=== PATIENT | female | born 1995 | race Caucasian/White ===

== ENCOUNTER → 2016-08-02 | Outpatient (REF) | payer BC | LOC: M SFHCWAGY 15:15 | PROVIDERS: ATTEND Nurse Practitioner Women's Health | DX: Z12.4 Encounter for screening for malignant neoplasm of cervix (principal); Z11.3 Encounter for screening for infections with a predominantly sexual mode of transmission | CPT/HCPCS: 87491; 87591; G0123 ==

== ENCOUNTER → 2016-08-31 | Outpatient (REF) | payer BC ==
[2016-08-31 19:15] LABS: ALBUMIN 4.9 GM/DL (3.2-5.2); ALBUMIN/GLOBULIN RATIO 1.53 (1.00-1.93); ALKALINE PHOSPHATASE 52 U/L (45-117); ALT/SGPT 30 U/L (12-78); ANION GAP 7 MEQ/L (8-16); AST/SGOT 22 U/L (15-37); BILIRUBIN,TOTAL 0.5 MG/DL (0.2-1.0); BLOOD UREA NITROGEN 20 MG/DL (7-18); CALCIUM LEVEL 9.5 MG/DL (8.5-10.1); CARBON DIOXIDE LEVEL 26 MEQ/L (21-32); CHLORIDE LEVEL 103 MEQ/L (98-107); CREATININE FOR GFR 0.81 MG/DL (0.55-1.02); FERRITIN 2 NG/ML (8-252); GLOMERULAR FILTRATION RATE > 60.0 (>60); GLUCOSE, FASTING 81 MG/DL (70-105); PERCENT SATURATION 2.5 % (13.2-37.4); POTASSIUM SERUM 4.3 MEQ/L (3.5-5.1); SODIUM LEVEL 136 MEQ/L (136-145); TOTAL IRON BINDING CAPACITY 563 UG/DL (250-450); TOTAL PROTEIN 8.1 GM/DL (6.4-8.2)
[2016-08-31 19:20] LABS: FOLATE > 24.0 NG/ML; VITAMIN B12 LEVEL 606 PG/ML
[2016-08-31 19:33] LABS: BASO # 0.1 K/mm3 (0.0-0.2); BASO % 1.2 % (0.0-1.0); EOS # 0.1 K/mm3 (0.0-0.50); EOS % 1.1 % (0.0-3.0); LARGE UNSTAINED CELL # 0.2 K/mm3 (0.0-0.4); LARGE UNSTAINED CELL % 2.7 % (0.0-4.0); LYMPH # 2.3 K/mm3 (1.5-6.5); LYMPH % 32.9 % (24.0-44.0); MEAN CORPUSCULAR HEMOGLOBIN 20.2 pg (27.0-33.0); MEAN CORPUSCULAR HGB CONC 28.3 g/dl (32.0-36.5); MEAN CORPUSCULAR VOLUME 71.4 fl (80.0-96.0); MONO # 0.3 K/mm3 (0.0-0.8); PLATELET COUNT, AUTOMATED 453 k/mm3 (150-450); RED CELL DISTRIBUTION WIDTH 15.7 % (11.5-14.5); WHITE BLOOD COUNT 6.8 K/mm3 (4.0-10.0)
[2016-08-31 19:35] LABS: ADD MORPHOLOGY? YES
[2016-08-31 20:43] LABS: HYPOCHROMASIA 2+; MICROCYTOSIS 2+; OVALOCYTES 2+; POIKILOCYTOSIS 2+; POLYCHROMASIA 1+; SCHISTOCYTES 1+
[2016-08-31 20:44] LABS: ACANTHOCYTES 1+; TARGET CELLS 1+
== END ==
LOC: M SFHCADAM 17:43
PROVIDERS: ATTEND Physician Assistant
DX: I73.00 Raynaud's syndrome without gangrene (principal); D50.9 Iron deficiency anemia, unspecified; R63.4 Abnormal weight loss

== ENCOUNTER → 2016-09-08 | Outpatient (CLI) | payer BC ==
--- NOTE | 2016-09-09 03:36 | REP ---
Clinical: Pelvic pain related to IUD placement. Technique: Transabdominal pelvic ultrasound followed by transvaginal examination for better evaluation of the endometrium and adnexa. Findings: Bladder is normal and measures 9.4 x 8.1 x 5.8 cm. Normal anteverted uterus measures 6.0 x 2.6 x 3.7 cm. The endometrial complex measures 2.5 mm thickness. No discrete uterine or endometrial abnormalities are appreciated. The bilateral ovaries are normal in appearance. Right ovary measures 3.3 x 2.8 x 1.9 cm. Left ovary measures 3.5 x 2.4 x 2.0 cm with 1.7 cm cyst. No pelvic fluid or adnexal mass lesion. Impression: Normal pelvic ultrasound. Signed by Bandar Diaz MD 09/09/2016 03:28 A
== END ==
LOC: M WHC 12:52
PROVIDERS: ATTEND Nurse Practitioner Women's Health
DX: Z53.8 Procedure and treatment not carried out for other reasons (principal)

== ENCOUNTER → 2016-10-06 | Outpatient (REF) | payer BC ==
[~2016-10-06] MED LIST: FERR1TAB8 PO
[2016-10-06 19:52] LABS: MEAN CORPUSCULAR HEMOGLOBIN 20.3 pg (27.0-33.0); MEAN CORPUSCULAR HGB CONC 29.2 g/dl (32.0-36.5); MEAN CORPUSCULAR VOLUME 69.5 fl (80.0-96.0); RED CELL DISTRIBUTION WIDTH 17.1 % (11.5-14.5); WHITE BLOOD COUNT 4.9 K/mm3 (4.0-10.0)
[2016-10-06 20:10] LABS: ALBUMIN 4.7 GM/DL (3.2-5.2); ALBUMIN/GLOBULIN RATIO 1.31 (1.00-1.93); ALKALINE PHOSPHATASE 45 U/L (45-117); ALT/SGPT 23 U/L (12-78); ANION GAP 8 MEQ/L (8-16); AST/SGOT 15 U/L (15-37); BILIRUBIN,TOTAL 0.4 MG/DL (0.2-1.0); BLOOD UREA NITROGEN 12 MG/DL (7-18); CALCIUM LEVEL 9.8 MG/DL (8.5-10.1); CARBON DIOXIDE LEVEL 29 MEQ/L (21-32); CHLORIDE LEVEL 104 MEQ/L (98-107); CREATININE FOR GFR 0.83 MG/DL (0.55-1.02); GLOMERULAR FILTRATION RATE > 60.0 (>60); GLUCOSE, FASTING 93 MG/DL (70-105); POTASSIUM SERUM 3.9 MEQ/L (3.5-5.1); SODIUM LEVEL 141 MEQ/L (136-145); TOTAL PROTEIN 8.3 GM/DL (6.4-8.2)
[2016-10-06 22:02] LABS: MICROSCOPIC INDICATED? MAN YES (NO)
[2016-10-06 22:33] LABS: BACTERIA, URINE SMALL AMOUNT; HYALINE CAST, URINE NONE SEEN /lpf (0-1); MICROSCOPIC EXAM PERFORMED; RBC, URINE NONE SEEN /hpf (0-3); SQUAMOUS EPITHELIAL CELL URINE SMALL AMOUNT /hpf (SMALL AMT); WBC, URINE 0-1 /hpf (0-3)
== END ==
LOC: M SFHCADAM 14:09
PROVIDERS: ATTEND Family Medicine
DX: A09 Infectious gastroenteritis and colitis, unspecified (principal)

== ENCOUNTER → 2016-11-21 | Outpatient (CLI) | payer BC ==
[~2016-11-21] MED LIST changes: +GASTROGRAFIN SOLUTION 30ML (Q9963) As Ordered ONE; +ISOVUE-370 76% 100ML VIAL (Q9967) As Ordered ONE
--- NOTE | 2016-11-21 14:26 | REP ---
CT abdomen pelvis with IV and oral contrast: HISTORY: Epigastric pain. CT CONTRAST DOSE: 100 mL of Isovue [address] FINDINGS: Preliminary digital door opener radiograph shows an unremarkable bowel gas pattern. Umbilical jewelry is present. Evaluation of the lung bases reveal an anomalous vessel providing systemic arterial blood to the right lower lung posterobasal segment. This anomalous vessel arises from the descending thoracic aorta. There is minimal adjacent interstitial or vascular congestion. Otherwise the lung bases are clear. The left ventricle is somewhat prominent in size. The liver and the spleen are normal in size homogeneous in texture. No adrenal lesion is seen. Gallbladder and pancreas are unremarkable. No vascular anomaly or abnormality is seen in the abdomen or pelvis. Kidneys enhance symmetrically and are morphologically intact. No adrenal masses seen. Small and large intestinal bowel loops are normal in the abdomen and pelvis. There is moderate right colonic stool. No uterine or ovarian abnormality is seen. Urinary bladder is intact. No bony destructive lesion is seen. IMPRESSION: 1. 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 This arterial vessel arises from the descending aorta. 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 The left ventricle appears somewhat prominent. Contrast enhanced chest CT and echocardiography should be considered. 2. No significant abdominal or pelvic abnormality is seen. Moderate right colonic stool. Signed by Marco Antonio Alvarez MD 11/21/2016 03:06 P
== END ==
LOC: M RAD 11:34
PROVIDERS: ATTEND Internal Medicine Gastroenterology
DX: R10.13 Epigastric pain (principal)
CPT/HCPCS: 74177; Q9963; Q9967

== ENCOUNTER → 2017-02-21 | Outpatient (CLI) | payer BC ==
[~2017-02-21] MED LIST changes: -GASTROGRAFIN SOLUTION 30ML (Q9963) As Ordered ONE
--- NOTE | 2017-02-21 14:49 | REP ---
Clinical: Anomalous pulmonary vasculature. Technique: Axial contrast enhanced images from the thoracic inlet to the upper abdomen using 100 ml Isovue 370 intravenous contrast material with coronal and sagittal re-formations. 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 The surrounding pulmonary parenchyma appears relatively normal although subtle scarring at the very distal aspect of this anomalous artery is suggested (images 72 - 79). There is no evidence for abnormal pulmonary consolidation or mass lesion in relation to the abnormal artery, and findings may reflect variant of intralobar sequestration. The remainder of the bilateral lung shine are well-aerated, symmetric and clear. The pulmonary veins, remaining pulmonary arteries and tracheobronchial tree appear normal. No pulmonary parenchymal consolidation, significant nodule or mass lesion is appreciated. No pleural effusion/reaction or pneumothorax. No adenopathy. The mediastinum demonstrates normal thoracic aorta and heart/pericardium. Surrounding musculoskeletal structures are intact and normal. Impression: 1. 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 2. The remainder of the contrast enhanced chest CT appears normal. No further abnormal mediastinal or pleuroparenchymal process appreciated. Signed by Bandar Diaz MD 02/21/2017 02:41 P
== END ==
LOC: M RAD 13:32
PROVIDERS: ATTEND Physician Assistant
DX: I28.8 Other diseases of pulmonary vessels (principal)
CPT/HCPCS: 71260; Q9967

== ENCOUNTER → 2017-02-22 | Outpatient (CLI) | payer BC ==
[~2017-02-22] MED LIST changes: -ISOVUE-370 76% 100ML VIAL (Q9967) As Ordered ONE
--- NOTE | 2017-02-22 13:45 | ECHO ---
DATE OF PROCEDURE: 02/22/2017 AGE: 21. GENDER: Female. HEIGHT: 54 inches. WEIGHT: 160 pounds. BODY SURFACE AREA: 1.5 m2. OUTPATIENT: INDICATION: Left ventricular enlargement. REFERRING PHYSICIAN: ELSI Moise. MEASUREMENTS: 2D Measurement: RV: 3.9 cm LV: 5.5 cm Septum: 0.8 cm Posterior wall: 0.8 cm Aortic root : 2.5 cm LA: 3.7 cm LVEF: 55% DOPPLER MEASUREMENTS: AV: 1.0 m/s LVOT: 0.8 m/s LVOT diameter : 1.9 cm MV-E: 110, A 30, E/A ratio 3.4. Early mitral deceleration time: 151 ms E prime: 13, A prime - 4, E/A prime ratio 8.1. PV: 0.8 m/s RVSP: 24 mmHg IVC: 1.3 cm COMMENTS: Normal sinus rhythm/sinus bradycardia without intraventricular conduction disturbance. Normal cardiac chamber sizes and wall thickenss. On real time imaging from the parasternal and apical projections, wall motion was symmetrical and normal. Normal appearing mitral valvular apparatus and leaflet excursion without posterior systolic buckling. Three equal sized aortic cusps with normal thickness and cusp separation. Normal aortic root size. No apparent intracardiac mass or pericardial effusion. Color flow Doppler study taken to the parasternal and apical projection showed trace mitral, mild tricuspid but no aortic insufficiency (physiological findings). Guided continuous wave Doppler of her aortic valve showed a normal peak systolic velocity against LV outflow obstruction. Pulsed and continuous wave Doppler of her LV inflow tract taken from the apical four-chamber projection showed normal diastolic filling velocities against mitral stenosis or LV diastolic dysfunction. Guided and continuous wave Doppler of her right LV inflow tract/pulmonary trunk showed a normal peak systolic velocity against right ventricle (RV) outflow tract obstruction. Guided and continuous wave Doppler of her tricuspid valve allowed our estimation of a right ventricular systolic pressure (within normal limits). Inferior vena cava was of normal size with normal respiratory collapse against an elevated central venous pressure. CONCLUSIONS: Normal appearing echocardiogram/Doppler study.
== END ==
LOC: M CARPUL 09:26
PROVIDERS: ATTEND Physician Assistant
DX: I51.7 Cardiomegaly (principal)

== ENCOUNTER → 2019-05-19 | Outpatient (REF) | payer OTHER | LOC: M LAB REF 12:39 | PROVIDERS: ATTEND Physician Assistant | DX: J00 Acute nasopharyngitis [common cold] (principal) ==

== ENCOUNTER → 2020-07-31 | Outpatient (REF) | payer OTHER ==
[2020-07-31 13:11] LABS: HEMATOCRIT 44.3 % (36.0-47.0); HEMOGLOBIN 14.2 g/dl (12.0-15.5); MEAN CORPUSCULAR HEMOGLOBIN 29.5 pg (27.0-33.0); MEAN CORPUSCULAR HGB CONC 32.1 g/dl (32.0-36.5); MEAN CORPUSCULAR VOLUME 91.9 fl (80.0-96.0); PLATELET COUNT, AUTOMATED 312 10^3/uL (150-450); RED BLOOD COUNT 4.82 10^6/uL (4.00-5.40); WHITE BLOOD COUNT 5.3 10^3/uL (4.0-10.0)
[2020-07-31 13:52] LABS: ALBUMIN 4.5 GM/DL (3.2-5.2); ALT/SGPT 22 U/L (12-78); BILIRUBIN,TOTAL 0.5 MG/DL (0.2-1.0); BLOOD UREA NITROGEN 11 MG/DL (7-18); CALCIUM LEVEL 9.6 MG/DL (8.5-10.1); CARBON DIOXIDE LEVEL 28 MEQ/L (21-32); CHLORIDE LEVEL 106 MEQ/L (98-107); CREATININE FOR GFR 0.75 MG/DL (0.55-1.30); FERRITIN 20 NG/ML (8-252); FOLATE 14.7 NG/ML; FREE T4 1.03 NG/DL (0.76-1.46); GLOMERULAR FILTRATION RATE > 60.0 (>60); GLUCOSE, FASTING 79 MG/DL (70-100); IRON (FE) 80 UG/DL (50-170); PERCENT SATURATION 20.5 % (13.2-45.0); POTASSIUM SERUM 4.6 MEQ/L (3.5-5.1); SODIUM LEVEL 139 MEQ/L (136-145); TOTAL IRON BINDING CAPACITY 391 UG/DL (250-450); TOTAL PROTEIN 7.6 GM/DL (6.4-8.2); VITAMIN B12 LEVEL 540 PG/ML
== END ==
LOC: M SFHCADAM 08:40
PROVIDERS: ATTEND Physician Assistant
DX: R19.7 Diarrhea, unspecified (principal); D50.9 Iron deficiency anemia, unspecified

== ENCOUNTER → 2023-03-22 | Outpatient (REF) | payer OTHER ==
[~2023-03-22] MED LIST changes: +HYDR-3363 PO; +XANA0.5T PO
[2023-03-22 15:24] LABS: CHLAMYDIA DNA AMPLIFICATION NEGATIVE (NEGATIVE); GC DNA AMPLIFICATION NEGATIVE (NEGATIVE)
== END ==
LOC: M SFHCWAGY 12:53
PROVIDERS: ATTEND Nurse Practitioner Family
DX: Z11.3 Encounter for screening for infections with a predominantly sexual mode of transmission (principal); R10.2 Pelvic and perineal pain
CPT/HCPCS: 87070; 87661; 87810; 87850; G0123

== ENCOUNTER → 2023-06-09 | Outpatient (CLI) | payer OTHER | LOC: M WUC 15:30 | PROVIDERS: ATTEND Physician Assistant | DX: M79.672 Pain in left foot (principal) ==

== ENCOUNTER → 2024-01-19 | Outpatient (CLI) | payer BC ==
[2024-01-19 13:37] LABS: HEMATOCRIT 39.1 % (36.0-47.0); HEMOGLOBIN 13.2 g/dl (12.0-15.5); MEAN CORPUSCULAR HGB CONC 33.8 g/dl (32.0-36.5); MEAN CORPUSCULAR VOLUME 91.8 fl (80.0-96.0); PLATELET COUNT, AUTOMATED 302 10^3/uL (150-450); RED BLOOD COUNT 4.26 10^6/uL (4.00-5.40); WHITE BLOOD COUNT 8.8 10^3/uL (4.0-10.0)
[2024-01-19 13:45] LABS: HIV 1&2 SCREEN NEGATIVE (NEGATIVE)
[2024-01-19 13:54] LABS: HEPATITIS C VIRUS ABY INDEX < 0.02 INDEX (<0.8)
[2024-01-19 15:32] LABS: GC DNA AMPLIFICATION NEGATIVE (NEGATIVE)
== END ==
LOC: M PLALAB 11:11
PROVIDERS: ATTEND Advanced Practice Midwife
DX: O99.341 Other mental disorders complicating pregnancy, first trimester (principal); Z3A.00 Weeks of gestation of pregnancy not specified

== ENCOUNTER → 2024-01-30 | Outpatient (CLI) | payer BC | LOC: M PLALAB 15:20 | PROVIDERS: ATTEND Advanced Practice Midwife | DX: Z34.80 Encounter for supervision of other normal pregnancy, unspecified trimester (principal) ==

== ENCOUNTER → 2024-02-16 | Outpatient (CLI) | payer BC | LOC: M PLALAB 13:44 | PROVIDERS: ATTEND Nurse Practitioner Family | DX: Z34.81 Encounter for supervision of other normal pregnancy, first trimester (principal) ==

== ENCOUNTER → 2024-03-19 | Outpatient (CLI) | payer BC | LOC: M PLALAB 10:09 | PROVIDERS: ATTEND Nurse Practitioner Family | DX: Z34.81 Encounter for supervision of other normal pregnancy, first trimester (principal); Z3A.00 Weeks of gestation of pregnancy not specified ==

== ENCOUNTER → 2024-03-29 | Outpatient (CLI) | payer BC | LOC: M WHC 14:25 | PROVIDERS: ATTEND Nurse Practitioner Family | DX: Z34.82 Encounter for supervision of other normal pregnancy, second trimester (principal) ==

== ENCOUNTER → 2024-05-16 | Outpatient (CLI) | payer BC ==
[2024-05-16 18:54] LABS: BASO % 0.4 % (0.0-1.0); EOS # 0.2 10^3/uL (0.0-0.5); EOS % 2.2 % (0.0-3.0); HEMATOCRIT 36.2 % (36.0-47.0); HEMOGLOBIN 11.9 g/dl (12.0-15.5); LYMPH # 1.7 10^3/uL (1.5-5.0); LYMPH % 17.3 % (24.0-44.0); MEAN CORPUSCULAR HEMOGLOBIN 30.4 pg (27.0-33.0); MEAN CORPUSCULAR HGB CONC 32.9 g/dl (32.0-36.5); MEAN CORPUSCULAR VOLUME 92.3 fl (80.0-96.0); MONO # 0.8 10^3/uL (0.0-0.8); MONO % 7.5 % (2.0-8.0); NEUTROPHILS # 7.2 10^3/uL (1.5-8.5); NEUTROPHILS % 71.9 % (36.0-66.0); PLATELET COUNT, AUTOMATED 275 10^3/uL (150-450); RED BLOOD COUNT 3.92 10^6/uL (4.00-5.40); WHITE BLOOD COUNT 10.1 10^3/uL (4.0-10.0)
[2024-05-16 19:06] LABS: GLUCOSE CHALLENGE TEST 1 HOUR 102 MG/DL (LESS THAN 140)
[2024-05-16 19:47] LABS: HIV 1&2 SCREEN NEGATIVE (NEGATIVE)
[2024-05-16 19:55] LABS: HEPATITIS C VIRUS ABY INDEX 0.09 INDEX (<0.8)
[2024-05-16 20:50] LABS: GC DNA AMPLIFICATION NEGATIVE (NEGATIVE)
== END ==
LOC: M PLALAB 14:28
PROVIDERS: ATTEND Specialist
DX: Z34.82 Encounter for supervision of other normal pregnancy, second trimester (principal)

== ENCOUNTER → 2024-07-18 | Outpatient (CLI) | payer BC | LOC: M WHC 07:09 | PROVIDERS: ATTEND Obstetrics & Gynecology | DX: O26.843 Uterine size-date discrepancy, third trimester (principal) ==

== ENCOUNTER → 2024-07-31 | Outpatient (REF) | payer BC | LOC: M SFHCWAGY 13:06 | PROVIDERS: ATTEND Obstetrics & Gynecology | DX: Z36.85 Encounter for antenatal screening for Streptococcus B (principal); Z3A.36 36 weeks gestation of pregnancy ==

== ENCOUNTER → 2025-03-16 | Outpatient (REF) | payer BC ==
[~2025-03-16] MED LIST changes: +BUSP10TA PO; +IBUP80TA PO; +PNVTAB4 PO; +ZOLO100T PO; +ZOLO25TA PO
== END ==
LOC: M LAB REF 10:53
PROVIDERS: ATTEND Physician Assistant
DX: B34.9 Viral infection, unspecified (principal)